=== PATIENT | female | born 1950 | race Caucasian/White ===

== ENCOUNTER 2018-02-22 00:13 | Outpatient (CLI) | payer MEDICARE, SELFPAY ==
--- NOTE | 2018-02-22 08:24 | DI.MAMMO_ITS ---
SYMPTOM/DIAGNOSIS: SCREENING, Z12.31 MAMMOGRAM: Mammograms were interpreted according to the usual protocol including computer analysis with CAD system, tomosynthesis and C view imaging. Comparison with prior examinations. No masses or microcalcifications are seen. There is nothing to suggest malignancy. Breast density C. IMPRESSION: Negative mammogram. Routine screening is recommended. SA ASSESSMENT OF FINDINGS: Negative. Category 1. Patient will receive a letter notifying them of these results. Bi-RADS category C. The breasts are heterogeneously dense, which may obscure small masses.
== END 2018-02-22 00:33 ==
PROVIDERS: PCP General Practice; Visit Provider General Practice
DX: Z12.31 Encounter for screening mammogram for malignant neoplasm of breast (principal)
CPT/HCPCS: 77063; 77067

== ENCOUNTER 2018-04-27 08:59 | Outpatient (REF) | payer OTHER, SELFPAY ==
[2018-04-27 13:34] LABS: Abs Immature Grans 0.01 k/cumm (0.0-0.09); Absolute Basophil Count 0.03 k/cumm (0.0-0.2); Absolute Eosinophil Count 0.07 k/cumm (0.0-0.7); Absolute Lymphocyte Count 1.65 k/cumm (1.2-3.4); Absolute Monocyte Count 0.39 k/cumm (0.11-0.7); Absolute Neutrophil Count 2.19 k/cumm (1.2-6.7); Basophils % 0.7; Eosinophils % 1.6; HGB 14.1 g/dL (12.0-15.5); Immature Grans % 0.2; Mean Corp. HGB Concentration 32.8 g/dL (32.0-36.0); Mean Corpuscular Hemoglobin 32.8 pg (27.0-33.0); Mean Platelet Volume 11.2 fL (8.0-11.0); Neutrophils % 50.5; Platelet Count 317 x1000/uL (130-400); RBC Distribution Width 12.9 % (11.7-14.6); White Blood Cell Count 4.34 k/cumm (4.4-10.8)
[2018-04-27 13:50] LABS: ALT 34 U/L (12-78); AST 21 U/L (15-37); Albumin 3.9 g/dL (3.4-5.0); Alkaline Phosphatase 112 U/L (46-116); BUN 17 mg/dL (7-18); Bilirubin, Total 0.9 mg/dL (0.2-1.0); CREATININE 0.89 mg/dL (0.55-1.02); Calcium 9.8 mg/dL (8.5-10.1); Chloride 105 mmol/L (98-107); Cholesterol 192 mg/dL (50-200); Glucose 90 mg/dL (70-100); HDL Cholesterol 93 mg/dL (40-60); LDL CHOLESTEROL 85 mg/dL (<100); Potassium 5.2 mmol/L (3.5-5.1); Sodium 142 mmol/L (136-145); Total Protein 7.3 g/dL (6.4-8.2); Triglyceride 47 mg/dL (30-150)
== END 2018-04-27 09:19 ==
LOC: NCHCN 08:59
PROVIDERS: PCP General Practice; Visit Provider Nurse Practitioner Family
DX: Z13.0 Encounter for screening for diseases of the blood and blood-forming organs and certain disorders involving the immune mechanism (principal); Z13.6 Encounter for screening for cardiovascular disorders
CPT/HCPCS: 80053; 80061; 83721; 85025

== ENCOUNTER 2018-07-27 12:09 | Outpatient (CLI) | payer OTHER, SELFPAY ==
[2018-07-27 12:45] LABS: HCT 41.1 % (36.0-46.0); HGB 13.8 g/dL (12.0-15.5); Mean Corp. HGB Concentration 33.6 g/dL (32.0-36.0); Mean Corpuscular Hemoglobin 33.1 pg (27.0-33.0); Mean Corpuscular Volume 98.6 fL (80-95); Mean Platelet Volume 10.7 fL (8.0-11.0); Platelet Count 313 x1000/uL (130-400); RBC 4.17 m/cumm (4.00-5.20); White Blood Cell Count 5.22 k/cumm (4.4-10.8)
[2018-07-27 14:16] LABS: Anion Gap 10.7 mmol/L (3-11); BUN 17 mg/dL (7-18); CO2 28.3 mmol/L (21.0-32.0); Calcium 9.5 mg/dL (8.5-10.1); Chloride 99 mmol/L (98-107); Glucose 93 mg/dL (70-100); Potassium 3.9 mmol/L (3.5-5.1); Sodium 138 mmol/L (136-145); TSH (W/Ref FT4) 0.71 uIU/mL (0.358-3.74)
== END 2018-07-27 12:29 ==
PROVIDERS: PCP Family Medicine; Visit Provider Family Medicine
DX: R55 Syncope and collapse (principal); R63.5 Abnormal weight gain
CPT/HCPCS: 36415; 80048; 85027; 84443

== ENCOUNTER 2018-08-02 01:09 | Outpatient (CLI) | payer OTHER, SELFPAY | END 2018-08-02 01:29 | PROVIDERS: PCP Family Medicine; Visit Provider Family Medicine | DX: R55 Syncope and collapse (principal); I49.1 Atrial premature depolarization | CPT/HCPCS: 93225 ==

== ENCOUNTER 2018-08-06 09:40 | Outpatient (CLI) | payer OTHER, SELFPAY ==
--- NOTE | 2018-08-07 10:39 | HOLTER_ITS ---
HOLTER MONITOR DATE OF DICTATION August 07, 2018 STUDY INDICATIONS Syncope. REQUESTING PROVIDER Evelia Fernandez M.D. FINDINGS The patient was monitored for two days. Baseline sinus rhythm. Average heart rate 72 beats per minute. Range 52 to 190 beats per minute. No PVCs. Occasional PACs, 4195/48 hours, 2% of total beats. 6 atrial runs, longest 5 beats, fastest 192 beats per minute. No pauses greater than 3 seconds. No higher degree heart block. No patient events. FINAL INTERPRETATION Minor atrial arrhythmias, asymptomatic. Hiren Dallas M.D. XIAO/rachel T - 08/07/2018
== END 2018-08-06 10:00 ==
PROVIDERS: PCP Nurse Practitioner Family; Visit Provider Nurse Practitioner Family
DX: R55 Syncope and collapse (principal); I49.1 Atrial premature depolarization
CPT/HCPCS: 93226

== ENCOUNTER → 2018-08-07 08:12 | Outpatient (CLI) | payer OTHER, SELFPAY | PROVIDERS: PCP Nurse Practitioner Family; Referring Provider Family Medicine; Visit Provider Student in an Organized Health Care Education/Training Program | DX: R55 Syncope and collapse (principal); I49.1 Atrial premature depolarization | CPT/HCPCS: 93227 ==

== ENCOUNTER 2018-09-24 18:10 | Outpatient (REF) | payer OTHER, SELFPAY ==
--- NOTE | 2018-09-24 13:32 | SKI_PTH ---
PATIENT: Erendira Odonnell LOC: [facility] U#:[id number] AGE/SX: 68/F ROOM: RE09/24/[address]: Eliceo Loyd DO : 1950 BED: DIS: 09/24/2018 SPEC #: [id number] RECD: 09/24/18 18:14 STATUS: JANI COYNE #: [id number] MERCEDES: 09/24/18 13:[address]: Eliceo Loyd DEPT: Surgical Specimen RECD BY: Karley Worthington ENTERED: 09/24/18 18:15 SP TYPE: SHERRIE PAZ DR: John Silveira Tissues: 1 - SKIN BIOPSY(SHAVE/PUNCH) 2 - SKIN BIOPSY(SHAVE/PUNCH) 3 - SKIN BIOPSY(SHAVE/PUNCH) Procedures: SKIN LEVEL 4 Comments: [id number]
== END 2018-09-24 18:30 ==
LOC: LBN 18:10
PROVIDERS: PCP Nurse Practitioner Family; Visit Provider Otolaryngology Otolaryngology/Facial Plastic Surgery
DX: L82.1 Other seborrheic keratosis (principal); L43.8 Other lichen planus
CPT/HCPCS: 88305

== ENCOUNTER 2019-03-27 09:58 | Outpatient (CLI) | payer OTHER, SELFPAY ==
--- NOTE | 2019-03-27 10:11 | DI.RAD_ITS ---
EXAM: XR KNEE LT 3V AP,LAT,SUSANA INDICATION: LT KNEE PAIN M25.562, X 3 WEEKS, HX MELANOMA, RULE OUT BONY LESION. COMPARISON: No exams were available for comparison TECHNIQUE: 2D digital imaging was performed. FINDINGS: The joint spaces are well maintained. No joint effusion is seen. No lytic or blastic bony lesion or soft tissue calcification is seen. IMPRESSION: Negative left knee.
== END 2019-03-27 10:18 ==
PROVIDERS: PCP Nurse Practitioner Family; Visit Provider Family Medicine
DX: M25.562 Pain in left knee (principal); Z85.820 Personal history of malignant melanoma of skin
CPT/HCPCS: 73562